=== PATIENT | male | born 1965 | race Caucasian/White ===

== ENCOUNTER → 2020-05-29 17:36 | Outpatient (CLI) | payer MEDICARE ==
[2020-05-29 17:55] LABS: BASOPHILS 0.2 % (0-2); EOSINOPHILS 6.3 % (0-7); HEMATOCRIT 34.8 % (42.0-54.0); HEMOGLOBIN 10.8 g/dL (13.5-17.5); IMMATURE GRANULOCYTES 0.2 % (0-5); LYMPHOCYTE ABS# 1.85 10x3/uL (1.32-3.57); LYMPHOCYTES 32.1 % (15-50); MCH 21.6 pg (26.0-34.0); MCV 69.5 fL (80.0-100.0); MONOCYTES 11.6 % (2-11); NEUTROPHIL ABS# 2.86 10x3/uL (1.78-5.38); NEUTROPHILS 49.6 % (40-80); PLATELET COUNT 311 10x3/uL (130-400); RBC 5.01 10x6/uL (4.20-6.10); RDW 23.8 % (11.5-14.5); WBC 5.8 10x3/uL (4.8-10.8)
[2020-05-29 18:39] LABS: ALBUMIN 2.9 g/dL (3.4-5.0); ALKALINE PHOSPHATASE 40 U/L (30-120); ALT (SGPT) 46 U/L (10-68); BILIRUBIN - TOTAL 0.33 mg/dL (0.2-1.3); CALC OSMOLALITY 277 mosm/kg (275-300); CALCIUM 8.6 mg/dL (8.5-10.1); CARBON DIOXIDE 23.2 mmol/L (21.0-32.0); CHLORIDE - SERUM 105 mmol/L (98-107); GLUCOSE 98 mg/dL (74-106); POTASSIUM - SERUM 4.4 mmol/L (3.5-5.1); PROTEIN - SERUM 5.9 g/dL (6.4-8.2); SODIUM 138 mmol/L (136-145); THYROID STIMULATING HORMONE 1.33 uIU/mL (0.36-3.74); UREA NITROGEN 17 mg/dL (7-18); VALPROIC ACID (DEPAKOTE) 40.7 ug/mL (50.0-100.0); eGFR NON AFRICAN AMERICAN 82 mL/min (90-120)
== END | disposition home or self-care (01) ==
LOC: D.LABREF 17:36
PROVIDERS: ATTEND Family Medicine
DX: G80.9 Cerebral palsy, unspecified (principal); F31.31 Bipolar disorder, current episode depressed, mild

== ENCOUNTER → 2020-06-22 20:48 | Outpatient (CLI) | payer MEDICARE ==
[2020-06-22 21:02] LABS: BASOPHILS 0.2 % (0-2); EOSINOPHILS 4.4 % (0-7); HEMATOCRIT 35.6 % (42.0-54.0); HEMOGLOBIN 11.3 g/dL (13.5-17.5); IMMATURE GRANULOCYTES 0.2 % (0-5); LYMPHOCYTE ABS# 1.92 10x3/uL (1.32-3.57); LYMPHOCYTES 30.2 % (15-50); MCH 22.6 pg (26.0-34.0); MCHC 31.7 g/dL (31.0-37.0); MCV 71.1 fL (80.0-100.0); MONOCYTES 10.8 % (2-11); NEUTROPHIL ABS# 3.45 10x3/uL (1.78-5.38); NEUTROPHILS 54.2 % (40-80); PLATELET COUNT 313 10x3/uL (130-400); RBC 5.01 10x6/uL (4.20-6.10); RDW 23.5 % (11.5-14.5); WBC 6.4 10x3/uL (4.8-10.8)
[2020-06-22 21:15] LABS: ALBUMIN 3.3 g/dL (3.4-5.0); ALKALINE PHOSPHATASE 45 U/L (30-120); ALT (SGPT) 100 U/L (10-68); BILIRUBIN - TOTAL 0.22 mg/dL (0.2-1.3); CALC OSMOLALITY 277 mosm/kg (275-300); CALCIUM 8.8 mg/dL (8.5-10.1); CARBON DIOXIDE 20.8 mmol/L (21.0-32.0); CHLORIDE - SERUM 105 mmol/L (98-107); GLUCOSE 98 mg/dL (74-106); POTASSIUM - SERUM 4.6 mmol/L (3.5-5.1); PROTEIN - SERUM 6.4 g/dL (6.4-8.2); SODIUM 138 mmol/L (136-145); UREA NITROGEN 19 mg/dL (7-18); eGFR NON AFRICAN AMERICAN 82 mL/min (90-120)
== END | disposition home or self-care (01) ==
LOC: D.LABREF 20:48
PROVIDERS: ATTEND Family Medicine
DX: D64.9 Anemia, unspecified (principal); F31.31 Bipolar disorder, current episode depressed, mild

== ENCOUNTER 2020-06-25 16:34 | Observation (INO) | payer MEDICARE ==
[~2020-06-25] VITALS: Ht 152.4 cm; Wt 83.9 kg
--- NOTE | ~2020-06-25 | EC ---
PATIENT:LOU ROMERO DATE OF SERVICE: 06/25/20 SEX: M MEDICAL RECORD: [id number] DATE OF : 63 LOCATION:D.M2 D.212 AGE OF PATIENT: 55 ADMISSION DATE: 06/25/20 REFERRING PHYSICIAN: INTERPRETING PHYSICIAN: DANI ALFARO MD ECHOCARDIOGRAM REPORT ECHO CHARGES 4 ECHO COMPLETE Date: 06/26/20 CLINICAL DIAGNOSIS: CP ECHOCARDIOGRAPHIC MEASUREMENTS (adult normal given) AC root (d.<3.7cm) 3.2 cm LV Septum d (<1.2 cm> 1.1 cm Valve Excursion 1.7 cm LV Septum (systole) 1.2 cm Left Atria (s.<4.0cm> 3.5 cm LVPW d(<1.2cm) 1.0 cm RV (d.<2.3cm) 3.4 cm LVPW (sytole) 1.1 cm LV diastole(<5.6CM) 4.0 cm MV E-F(>70mm/sec) cm LV systole 3.2 cm LVOT Diameter 1.9 cm MV exc.(>10mm) 1.4 cm Est.ejection fraction (50-75%) % DOPPLER: LVIT cm/sec A 68 cm/sec E 89 cm/sec LA cm/sec RVSP 18 mmHg LVOT 97 cm/sec AOP1/2T m/s Asc. Ao 139 cm/sec RVOT 54 cm/sec RA cm/sec PA 93 cm/sec AV Gradient Peak 7.7 mmHg AV Mean 4.0 mmHg AV Area 1.9 cm MV Gradient Peak 4.4 mmHg MV Mean 2.3 mmHg MV Area cm COMMENTS: Cut Off Operator Scorer: Jacque MCGRATH Road Roller Operator Hot Mix: 3 Dr. Tapia TAPE# Pericardial Effusion N DATE OF SERVICE: Adequate 2D, color flow imaging, spectral Doppler, and M-Mode. No LVH. LV internal dimensions are normal. Wall motion normal. EF greater than or equal to 55%. Aortic valve is tricuspid. No evidence of stenosis by Doppler interrogation. Left atrium is normal. Mitral valve shows no prolapse. Trivial MR. Right-sided chambers are grossly normal. Trivial TR. TRANSINT:[id number] Voice Confirmation ID: [id number] DOCUMENT ID: [id number] ECHOCARDIOGRAM REPORT [id number] LOU ROMERO DANI ALFARO MD CC: [id number] DICTATION DATE: 06/26/20 1538 ORTHOPAEDIC TECHNOLOGIST: 06/27/20 0015 DIS IN 06/26/20 [place] [id number] [place] [id number]
[2020-06-25] MEDS ORDERED: IPRAT-ALBUT 0.5-3 ML UPD (16:54)
[2020-06-25] MEDS ORDERED: ZOFRAN ODT4 MG/UDTAB PO (16:54)
[2020-06-25] MEDS ORDERED: VALISONE 0.1% C15 GM TOPICAL (16:55)
[2020-06-25] MEDS ORDERED: GEODON20 MG PO (16:55)
[2020-06-25] MEDS ORDERED: KLONOPIN0.5 MG PO (16:55)
[2020-06-25] MEDS ORDERED: DEPAKOTE SPRIN125 MG PO (16:56)
[2020-06-25] MEDS ORDERED: MIRALAX17 GM PO (16:56)
[2020-06-25] MEDS ORDERED: PAXIL20 MG PO (16:57)
[2020-06-25] MEDS ORDERED: ALLER-CHLOR4 MG PO (16:58)
[2020-06-25] MEDS ORDERED: FERROUS SULFAT325 MG PO (16:59)
[2020-06-25] MEDS ORDERED: FOLIC ACID1 MG PO (16:59)
[2020-06-25] MEDS ORDERED: FEXOFENADINE HC60 MG PO (16:59)
[2020-06-25] MEDS ORDERED: MULTI-DAY VITAM1 TAB PO (17:00)
[2020-06-25] MEDS ORDERED: MYLANTA / MAALO30 ML PO (17:01)
[2020-06-25] MEDS ORDERED: BACLOFEN10 MG PO (17:01)
[2020-06-25 17:19] LABS: BASOPHILS 0.2 % (0-2); EOSINOPHILS 4.9 % (0-7); HEMATOCRIT 38.1 % (42.0-54.0); HEMOGLOBIN 11.9 g/dL (13.5-17.5); IMMATURE GRANULOCYTES 0.1 % (0-5); LYMPHOCYTE ABS# 2.85 10x3/uL (1.32-3.57); LYMPHOCYTES 32.4 % (15-50); MCH 22.8 pg (26.0-34.0); MCHC 31.2 g/dL (31.0-37.0); MCV 72.8 fL (80.0-100.0); MEAN PLATELET VOLUME 9.2 fL (7.4-10.4); MONOCYTES 13.6 % (2-11); NEUTROPHIL ABS# 4.29 10x3/uL (1.78-5.38); NEUTROPHILS 48.8 % (40-80); PLATELET COUNT 329 10x3/uL (130-400); RBC 5.23 10x6/uL (4.20-6.10); RDW 22.8 % (11.5-14.5); WBC 8.8 10x3/uL (4.8-10.8)
[2020-06-25 17:29] LABS: CALC OSMOLALITY 276 mosm/kg (275-300); CALCIUM 8.7 mg/dL (8.5-10.1); CARBON DIOXIDE 25.6 mmol/L (21.0-32.0); CHLORIDE - SERUM 105 mmol/L (98-107); CREATININE - SERUM 0.9 mg/dL (0.6-1.3); GLUCOSE 102 mg/dL (74-106); POTASSIUM - SERUM 4.1 mmol/L (3.5-5.1); SODIUM 138 mmol/L (136-145); UREA NITROGEN 14 mg/dL (7-18); eGFR NON AFRICAN AMERICAN > 90 mL/min (90-120)
[2020-06-25 17:30] LABS: INR 1.1 (0.85-1.17); PROTIME 13.2 SECONDS (11.6-15.0)
[2020-06-25 17:31] LABS: APTT 28.8 SECONDS (22.8-39.4)
[2020-06-25 17:57] LABS: ALBUMIN 3.3 g/dL (3.4-5.0); ALKALINE PHOSPHATASE 51 U/L (30-120); ALT (SGPT) 109 U/L (10-68); BILIRUBIN - TOTAL 0.19 mg/dL (0.2-1.3); CKMB 0.9 U/L (0.0-3.6); CREATINE KINASE 71 UL (21-232); MAGNESIUM - SERUM 2.4 mg/dL (1.8-2.4); TROPONIN-I < 0.017 ng/mL (0.000-0.060); VALPROIC ACID (DEPAKOTE) 42.6 ug/mL (50.0-100.0)
[2020-06-25 17:59] LABS: BILIRUBIN NEGATIVE (NEGATIVE); KETONE NEGATIVE (NEGATIVE); NITRITE NEGATIVE (NEGATIVE); UROBILINOGEN NORMAL mg/dL (< 2)
[2020-06-25 18:20] VITALS: BP 122/87
[2020-06-25 20:00] VITALS: BP 127/78
[2020-06-25 23:24] LABS: CKMB 0.6 U/L (0.0-3.6); CREATINE KINASE 71 UL (21-232)
[2020-06-25 23:25] LABS: TROPONIN-I < 0.017 ng/mL (0.000-0.060)
[2020-06-26 04:00] VITALS: BP 91/52
[2020-06-26 05:16] LABS: BASOPHILS 0.2 % (0-2); EOSINOPHILS 4.1 % (0-7); HEMATOCRIT 35.5 % (42.0-54.0); HEMOGLOBIN 10.7 g/dL (13.5-17.5); IMMATURE GRANULOCYTES 0.1 % (0-5); LYMPHOCYTE ABS# 2.73 10x3/uL (1.32-3.57); LYMPHOCYTES 32.7 % (15-50); MCH 22.2 pg (26.0-34.0); MCHC 30.1 g/dL (31.0-37.0); MCV 73.5 fL (80.0-100.0); MONOCYTES 13.2 % (2-11); NEUTROPHIL ABS# 4.16 10x3/uL (1.78-5.38); NEUTROPHILS 49.7 % (40-80); PLATELET COUNT 302 10x3/uL (130-400); RBC 4.83 10x6/uL (4.20-6.10); RDW 22.7 % (11.5-14.5); WBC 8.4 10x3/uL (4.8-10.8)
[2020-06-26 05:41] LABS: CALC OSMOLALITY 279 mosm/kg (275-300); CALCIUM 8.2 mg/dL (8.5-10.1); CARBON DIOXIDE 21.6 mmol/L (21.0-32.0); CHLORIDE - SERUM 108 mmol/L (98-107); CKMB 0.8 U/L (0.0-3.6); CREATINE KINASE 95 UL (21-232); GLUCOSE 105 mg/dL (74-106); POTASSIUM - SERUM 4.6 mmol/L (3.5-5.1); SODIUM 140 mmol/L (136-145); TROPONIN-I < 0.017 ng/mL (0.000-0.060); UREA NITROGEN 16 mg/dL (7-18); eGFR NON AFRICAN AMERICAN 66 mL/min (90-120)
[2020-06-26 05:42] LABS: CREATININE - SERUM 1.2 mg/dL (0.6-1.3)
[2020-06-26 07:47] VITALS: BP 119/72
--- NOTE | 2020-06-26 08:00 | NUR ---
PT RECEIVED AWAKE AND ALERT BUT NON VERBAL. FAMILY AT BEDSIDE. NPO FOR CARDIO CONSULT. COMPLAINTS OF PAIN, MEDS GIVEN.
[2020-06-26 12:14] VITALS: BP 109/71
[2020-06-26 13:31] VITALS: Ht 152.4 cm; Wt 83.9 kg
[2020-06-26 16:09] VITALS: BP 100/47
--- NOTE | 2020-06-26 18:14 | NUR ---
REPORT CALLED TO NURSE AT [facility]. IV REMOVED AND TELEMETRY RETURNED. PT'S SISTER IS TRANSPORTING BACK TO FACILITY. DISCHARGE PACKET IN HAND.
== END 2020-06-26 18:20 ==
LOC: D.ER 16:34 → OBSVTIME 18:17 → D.M2 18:17
PROVIDERS: Emergency Medicine; ADMIT Family Medicine; ATTEND Family Medicine
DX: I20.9 Angina pectoris, unspecified (principal); R00.0 Tachycardia, unspecified; K21.9 Gastro-esophageal reflux disease without esophagitis; G80.9 Cerebral palsy, unspecified; R07.9 Chest pain, unspecified

== ENCOUNTER → 2020-07-09 18:37 | Outpatient (CLI) | payer MEDICARE ==
[2020-06-26 13:31] VITALS: BMI 36.1
[~2020-07-09 18:37] MED LIST: ALLER-CHLOR4 MG PO; BACLOFEN10 MG PO; DEPAKOTE SPRIN125 MG PO; FERROUS SULFAT325 MG PO; FEXOFENADINE HC60 MG PO; FOLIC ACID1 MG PO; GEODON20 MG PO; IPRAT-ALBUT 0.5-3 ML UPD; KLONOPIN0.5 MG PO; MIRALAX17 GM PO; MULTI-DAY VITAM1 TAB PO; MYLANTA / MAALO30 ML PO; PAXIL20 MG PO; VALISONE 0.1% C15 GM TOPICAL; ZOFRAN ODT4 MG/UDTAB PO
[2020-07-09 20:06] LABS: ALBUMIN 2.9 g/dL (3.4-5.0); ALKALINE PHOSPHATASE 49 U/L (30-120); ALT (SGPT) 122 U/L (10-68); BILIRUBIN - TOTAL 0.21 mg/dL (0.2-1.3); CALC OSMOLALITY 279 mosm/kg (275-300); CALCIUM 8.5 mg/dL (8.5-10.1); CARBON DIOXIDE 21.8 mmol/L (21.0-32.0); CHLORIDE - SERUM 105 mmol/L (98-107); GLUCOSE 96 mg/dL (74-106); POTASSIUM - SERUM 4.9 mmol/L (3.5-5.1); PROTEIN - SERUM 5.8 g/dL (6.4-8.2); SODIUM 140 mmol/L (136-145); UREA NITROGEN 16 mg/dL (7-18); eGFR NON AFRICAN AMERICAN 82 mL/min (90-120)
== END | disposition home or self-care (01) ==
LOC: D.LABREF 18:37
PROVIDERS: ATTEND Family Medicine
DX: K76.9 Liver disease, unspecified (principal)

== ENCOUNTER → 2020-09-10 17:50 | Outpatient (CLI) | payer MEDICARE ==
[2020-06-26 13:31] VITALS: BMI 36.1
== END | disposition home or self-care (01) ==
LOC: D.LABREF 17:50
PROVIDERS: ATTEND Family Medicine
DX: Z79.899 Other long term (current) drug therapy (principal)